=== PATIENT | male | born 1970 ===

== ENCOUNTER 2024-04-03 18:38 | Emergency (ER) | payer OTHER ==
[2024-04-03] MEDS ORDERED: diphenhydrAMINE ELIXIR 25 MG/10 ML CUP ONE (20:23)
[2024-04-03] MEDS ORDERED: methylPREDNISolone SOD SUCCI 125 MG/2 ML VIAL ONE (20:23)
[2024-04-03] MEDS ORDERED: diphenhydrAMINE 50 MG/ML 1 ML VIAL ONE (20:24)
[2024-04-03] MEDS ORDERED: FAMOTIDINE 20 MG/2 ML VIAL ONE (20:24)
[2024-04-03] MEDS ORDERED: Acetaminophen-Codeine 300-30mg TAB ONE (23:01)
--- NOTE | 2024-04-25 05:44 | CT ---
Oniel Guerrero ID: [id number] : 1970 EXAMINATION TYPE: CT angio abdominal aorta W Run Off DATE OF EXAM: 04/03/2024 COMPARISON: NONE HISTORY: 53 year-old male left lower extreme knee pain and numbness. History of abdominal aortic occl usion. TECHNIQUE: CT of the abdomen and pelvis before and after administration of 100 ml Isovue 370 IV contr ast. Postcontrast scan completed with bilateral lower extremity runoff. Coronal and sagittal reconst ructions performed. 3-D reconstructions generated on a dedicated independent workstation. CT DLP: 1434.7 mGycm Automated exposure control for dose reduction was used. FINDINGS: Abdomen pelvis: The heart is normal size without pericardial effusion. There may be a tiny hiatal hernia. Strandy ate lectasis in the lower lungs. No pleural effusion. Noncontrast and arterial phase imaging of the liver, gallbladder, spleen, and pancreas within normal limits. A couple benign cortical cyst left kidney measuring up to 2.3 cm. No hydronephrosis. No dilated small bowel,, or free air. No mesenteric or retroperitoneal lymphadenopathy. Normal appendix. Mild stool burden. No pericolonic inflammatory change. Bladder is distended. Prostate gland measures 3.8 cm wide. Couple pelvic phleboliths are present. No abnormal fluid collection in the pelvis or pelvic lymphadenopathy. Small bilateral hydroceles. Bones: Mild to moderate degenerative disc disease L5-S1. No osseous destructive process. Vasculature: Scattered moderate atherosclerotic calcifications abdominal aorta. Celiac axis appears patent though with some possible narrowing at its origin. SMA and single bilateral renal arteries are patent. There are some surgical clips along the mid abdominal aorta below the level of the renal arteries. No significant stenosis. Right: The iliac arteries, [employer], PFA, and SFA are patent. The popliteal artery and trifurcation vessels are patent. However, the peroneal artery is very diminutive and is not seen beyond the proximal third leg level. The anterior tibial artery is no longer seen on the distal third leg level. Single-vessel runoff to the hindfoot via the posterior tibial artery. Left: The iliac arteries, [employer], PFA, and SFA are patent with only mild atherosclerotic changes. The popliteal artery and tibioperoneal trunks are patent. Peroneal artery and anterior tibial arteries no longer seen beyond the mid leg level. Faint runoff via the posterior tibial artery to the hindfoot. IMPRESSION: 1. THE PERONEAL AND ANTERIOR TIBIAL ARTERIES are no longer seen beyond the mid to distal third leg le nilesh. The posterior tibial arteries on both sides become diminutive but show runoff to the hindfoot on both sides. The scanner may have outrun the contrast bolus. Correlate for distal pulses. 2. No significant atherosclerotic changes are identified in the bilateral lower extremities. 3. Scattered moderate atherosclerotic changes in the abdominal aorta but without any significant sten osis. There appear to be some surgical clips adjacent to the mid abdominal aorta.
== END 2024-04-04 00:15 | disposition home or self-care (01) ==
LOC: EC 18:38
CPT/HCPCS: 75635; 93005; 96374; 96375; 99284

== ENCOUNTER → 2024-04-06 | Outpatient (CLI) | payer OTHER ==
--- NOTE | 2024-04-24 09:00 | MR ---
Patient: Oniel Guerrero Ordering Physician: Unknown, Unknown ID: [id number] Phone, Pager: Phone: N/ A Pager: N/A : 1970 Age/Gender: 53Y, M Primary Location: N/A Procedure: MR lumbar wo/w con [facility] Date: 04/06/2024 11:49:14 AM EXAMINATION TYPE: MR lumbar spine wo/w con DATE OF EXAM: 04/06/2024 2:55 PM CLINICAL INDICATION: Pain with radiation down left leg COMPARISON: None TECHNIQUE: Multi planar, multi sequence imaging was performed utilizing: T1-weighted, T2-weighted, a nd turbo inversion recovery imaging of the lumbar spine. IV Contrast: 6 cc Gadavist (None if empty) FINDINGS: Alignment: The lumbar vertebral bodies have preserved heights and alignment. Cord: The conus medullaris and the distal spinal cord appear unremarkable with regards to their signa l intensity and morphology. Bones/Discs: Mild degeneration changes throughout the spine with osteophyte formation and facet joint arthropathy. Intervertebral disc signal is maintained. No abnormal inversion recovery signal to sugg est bony edema. T12-L1: No evidence of significant spinal canal stenosis or neural foraminal stenosis. L1-L2: No evidence of significant spinal canal stenosis or neural foraminal stenosis. L2-L3: Left central and foraminal eL disc extrusion with inferior migration up to 12 mm. This abuts a nd displaces nerves in the cauda equina. No suspicious postcontrast enhancement. L3-L4: Disc bulge and facet joint arthropathy result in mild spinal canal and mild bilateral neural f oraminal stenosis. L4-L5: Disc bulge and facet joint arthropathy result in mild spinal canal and mild bilateral neural f oraminal stenosis. L5-S1: The disc has a rounded posterior morphology without significant spinal canal stenosis. Facet j oint arthropathy with mild bilateral neural foraminal stenosis. No significant spinal canal or neural foraminal stenosis in the remainder of the visualized levels. Other findings: Bilateral renal high T2 signal low T1 cyst. IMPRESSION: 1. L2-L3 left central/foraminal disc extrusion with inferior migration this material to 12 mm. This displaces nerves in the spinal canal 2. Multilevel disc degeneration with associated osteoarthritic changes.
== END | disposition home or self-care (01) ==
LOC: RADMRIMAIN 12:39
PROVIDERS: ATTEND Family Medicine
DX: M19.90 Unspecified osteoarthritis, unspecified site (principal); M51.16 Intervertebral disc disorders with radiculopathy, lumbar region
CPT/HCPCS: 72158; A9585